=== PATIENT | female | born 1950 | race Caucasian/White ===

== ENCOUNTER → 2016-10-27 | Day surgery (SDC) | payer MEDICARE ==
[~2016-10-27] MED LIST: ACETAMINOPHEN 1000 MG/100 ML VIAL IV SCH; ASPI1TAB69 PO; BUPIVACAINE/EPINEPHRINE 0.5% 50 ML VIAL ONE; CHLORHEXIDINE GLUCONATE 2 % 1 PACK (2 CLOTHS) TOPICAL PRN; DO NOT ADM ANY ANTICOAGULANT DRUGS PRN; ESTR1TAB PO; FAMOTIDINE 20 MG/2 ML VIAL ONE; INSULIN HUMAN REGULAR 1,000 UNITS/10 ML VIAL SQ PRN; KETOROLAC TROMETHAMINE 30 MG/ML (IVP) VIAL IV PUSH ONE; KETOROLAC TROMETHAMINE 60 MG/2 ML (IM) VIAL IM ONE; LACTATED RINGER'S 1000 ML IV PRN; LISI-515 PO; MEDR2.5T2 PO; METOPROLOL TARTRATE 25 MG TAB PO PRN; MIDAZOLAM HCL 2 MG/2 ML VIAL ONE; MORPHINE SULFATE 4 MG/ML INJ IV PRN; NEOSTIGMINE 3 MG/3 ML SYR IV ONE; ONDANSETRON HCL 4 MG/2 ML VIAL IV PRN; ONDANSETRON HCL 4 MG/2 ML VIAL IV PUSH ONE; PANT40TA3 PO; PHENYLEPH/NS 1000 MCG/10 ML SYR IV ONE; POVIDONE IODINE 5% (ANTISEPSIS KIT) 4 APPLICATIONS EACH NARE PRN; PROPOFOL 200 MG/20 ML AMP IV ONE; SIMV20TA PO; SODIUM CHLORID 0.9% 500 ML IV PRN; SODIUM CHLORIDE FLUSH BID IV FLUSH SCH; SODIUM CHLORIDE FLUSH PRN IV FLUSH; ZANT150T2 PO; ceFAZolin 2 GM PREMIX 50 ML IV SCH; fentaNYL CITRATE 250 MCG/5 ML AMP ONE; oxyCODONE/ACETAMINOPHEN 5 MG/325 MG TAB ONE; oxyCODONE/ACETAMINOPHEN 5 MG/325 MG TAB PO PRN
[2016-10-27 06:57] VITALS: BP 130/92; PULSE 82; RESP 18; TEMP 98.9; O2SAT 97
[2016-10-27 12:00] VITALS: BP 116/72; PULSE 70; RESP 16; TEMP 98; O2SAT 98
--- NOTE | 2016-10-27 14:25 | PD.OP ---
cc: Faheem Belle MD; Yasir Durant MD PhD Operative Report Date of Surgery: Oct 27, 2016 Preoperative Diagnosis: Chronic cholecystitis and cholelithiasis Postoperative Diagnosis: Chronic cholecystitis and cholelithiasis Procedure: Laparoscopic cholecystectomy Anesthesia: Gen. endotracheal Surgeon: Faheem Belle Blood Tester(s): Ezio Nye, MS 3 Operation and Findings: Operative findings: The patient was found to have a large number of adhesions between the omentum and mesentery to the anterior abdominal wall located mainly in the upper abdomen without obvious cause as she had had no previous surgery or obvious intraperitoneal infections. The gallbladder itself was seen to be chronically diseased with adhesions along its length and was also seen to have several very large stones within the lumen. No other abnormalities were noted. Operative procedure: The patient brought to the operating room and after satisfactory general endotracheal anesthesia obtained, the abdomen was prepped and draped in the usual sterile fashion. 0.5% Marcaine with epinephrine was used to infiltrate the skin for local anesthesia. Small incision was made above the umbilicus and a 5 mm trocar was inserted directly into the peritoneal cavity under visualization. The abdomen was distended to 15 mmHg using carbon dioxide after which the camera was reinserted and visceral injury inspected for with none being identified. The adhesions were immediately encountered superiorly and an attempt was made to bluntly dissecting with the scope without success although I was able to access the upper abdomen enough to see the liver. At this point the decision was made to place another 5 mm port which was accomplished under direct visualization on the left side of the abdomen. Using blunt dissection as well as the harmonic scalpel, the adhesions were taken down enough to clear the upper abdomen enough to be able to see the liver and gallbladder. At that point a 12 mm trochar placed in the upper abdomen and a 5 mm port was placed just below it. The gallbladder was grasped and adhesions were taken down bluntly along the entire length down to the cystic duct area. Thornton's pouch was then grasped and retracted inferiorly and laterally, placing tension on the hepatoduodenal ligament. The cystic duct and artery were dissected free bluntly in order to obtain the critical view. Once it had been established that these were proper structures the cystic artery was divided near central the gallbladder with the Harmonic scalpel. The cystic duct was traced down to its origin at the common bile duct and then divided in its midportion but with a Harmonic scalpel as well. The gallbladder was dissected free from the liver bed using the Harmonic. It was placed within an Endo Catch bag and brought through the upper midline incision which was necessarily enlarged to allow egress of the very large stones. The 12 mm trocar was placed back within the peritoneal cavity and the liver bed inspected and found to be hemostatic. The cystic duct cystic artery stumps were both carefully inspected and found to be intact with no leakage of bile or blood. The carbon dioxide was vented as completely as possible to the atmosphere after which the ports were removed and the 12 mm fascial defect closed with interrupted 0 Vicryl sutures and skin was closed with interrupted 4- 0 Monocryl subcuticular stitches. Steri-Strips were applied and the patient was then awakened and taken from the operating room, in satisfactory condition, having tolerated procedure without problem. Estimated blood loss was less than 30 mL's. The instrument, sponge, needle counts were reported as being correct 2 at the end of procedure. Faheem Belle MD Oct 27, 2016 14:25
== END | disposition home or self-care (01) ==
LOC: HSDC 06:20
PROVIDERS: ATTEND Surgery
DX: K80.10 Calculus of gallbladder with chronic cholecystitis without obstruction (principal); I10 Essential (primary) hypertension; E78.5 Hyperlipidemia, unspecified
CPT/HCPCS: 00790; 47562; 88304; J0131; J0690; J1885; J2250; J2370; J2405; J2710; J3010; J7120